=== PATIENT | male | born 1955 | race African-American/Black ===

== ENCOUNTER 2017-01-31 11:57 | Inpatient (IN) | payer OTHER ==
[~2017-01-31] VITALS: Ht 162.6 cm; Wt 59.0 kg
[~2017-01-31 11:57] MED LIST: AMLO10TA4 PO; AMOX-421 PO; ATOR10TA PO; CIPR2.5D17 BOTHEYE; INSASP SUBCUT; LEVVL SUBCUT; PHEN100C4 PO; PRED1DRO LEFTEYE; PRED5DRO7 OP; TRAM50TA73 PO
[2017-01-31] MEDS ORDERED: SODIUM CHLORIDE 0.9% 1,000 ML IV ONE (12:39)
[2017-01-31] MEDS ORDERED: INSULIN REGULAR (HUMULIN R) UD 100 UNITS/ML SYR IV ONE (12:45)
[2017-01-31 12:51] LABS: CLARITY URINE CLEAR (CLEAR); COLOR URINE YELLOW (YELLOW); GLUCOSE URINE 3+ (NEGATIVE); KETONES URINE NEGATIVE (NEGATIVE); LEUKOCYTE ESTERASE URINE NEGATIVE (NEGATIVE); NITRITE URINE NEGATIVE (NEGATIVE); OCCULT BLOOD URINE NEGATIVE (NEGATIVE); PROTEIN URINE NEGATIVE (NEGATIVE); SPECIFIC GRAVITY URINE 1.029 (1.005-1.030); UROBILINOGEN URINE 0.2 E.U./dL (0.2-1.0)
[2017-01-31 12:55] LABS: BASOPHILS % 1.4 % (0.0-2.0); EOSINOPHILS % 2.3 % (0.0-5.0); HEMATOCRIT. 40.5 % (42.0-52.0); LYMPHOCYTES % 23.5 % (20.0-50.0); MEAN CORPUSCULAR HEMOGLOBIN 29.9 pg (28.0-32.0); MEAN CORPUSCULAR VOLUME 93.4 fL (80.0-94.0); NEUTROPHILS % 66.8 % (40.0-76.0); PLATELET 279 x1000/uL (130-400); RED BLOOD CELL COUNT 4.34 mill/uL (4.7-6.1); RED CELL DISTRIBUTION WIDTH 15.1 % (11.6-14.6)
[2017-01-31] MEDS ORDERED: INSULIN REGULAR (HUMULIN R) 300UNITS/3ML IV ONE (13:00)
[2017-01-31 13:02] LABS: CHLORIDE 98 mEq/L (98-107)
[2017-01-31 13:07] LABS: BG BASE EXCESS -6.2 mmol/L (-2.0-2.0); BG CARBOXYHEMOGLOBIN 2.7 % (0.5-1.5); BG DEOXYHEMOGLOBIN 4.6 % (0.0-5.0); BG HCO3 ACT 18.8 mmol/L (22.0-26.0); BG OXYGEN SATURATION 95.3 % (92.0-98.5); BG OXYHEMOGLOBIN 92.7 % (94.0-97.0); BG PCO2 35.6 mmHg (35.0-45.0); BG PO2 80.8 mmHg (75.0-100.0); BG SAMPLE SITE RIGHT BRACHIAL; BG TOTAL HEMOGLOBIN 13.5 g/dL (12.0-18.0); BG VENT MODE ROOM AIR
[2017-01-31 13:10] LABS: AMYLASE 15 IU/L (25-115); BETA HYDROXYBUTYRATE 0.1 mMol/L (0.0-0.3); CARBON DIOXIDE 21 mEq/L (21-32)
[2017-01-31] MEDS ORDERED: SODIUM CHLORIDE 0.9% 1,000 ML IV NR (17:15)
[2017-01-31] MEDS ORDERED: INSULIN REGULAR (HUMULIN R) 300UNITS/3ML IV NR (17:15)
[2017-01-31] MEDS: BLOOD SUGAR DIAGNOSTIC STRIP TEST SCH (23:23)
[2017-01-31] MEDS ORDERED: DEXTROSE 50% WATER 50ML SYRINGE IV PRN (23:30)
[2017-01-31] MEDS: INSULIN LISPRO 100 UNITS/ML SUBCUT SCH (23:57)
[2017-02-01] VITALS (7 sets, daily range): BP systolic 114–159; BP diastolic 84–111
[2017-02-01] MEDS ORDERED: DEXTROSE 50% WATER 50ML SYRINGE IV PRN ×2 (01:00→14:00)
[2017-02-01] MEDS: AMLODIPINE 10MG TABLET PO SCH ×2 (01:10→09:40)
[2017-02-01 02:09] LABS: *AMPHETAMINES SCREEN URINE NEGATIVE (NEGATIVE); *BARBITURATES SCREEN URINE NEGATIVE (NEGATIVE); *BENZODIAZEPINES SCREEN URINE NEGATIVE (NEGATIVE); *COCAINE SCREEN URINE PRESUMTIVE POSITIVE (NEGATIVE); CANNABINOID URINE SCREEN NEGATIVE (NEGATIVE); METHADONE URINE SCREEN NEGATIVE (NEGATIVE); OPIATES URINE SCREEN NEGATIVE (NEGATIVE); PHENCYCLIDINE URINE SCREEN NEGATIVE (NEGATIVE)
[2017-02-01 05:18] LABS: BASOPHILS % 1.1 % (0.0-2.0); EOSINOPHILS % 3.4 % (0.0-5.0); HEMATOCRIT. 40.3 % (42.0-52.0); HEMOGLOBIN. 13.7 g/dL (14.0-18.0); LYMPHOCYTES % 31.3 % (20.0-50.0); MEAN CORPUSCULAR VOLUME 88.7 fL (80.0-94.0); MEAN PLATELET VOLUME 9.7 fl (7.4-10.4); MONOCYTES % 3.9 % (2.0-8.0); NEUTROPHILS % 60.3 % (40.0-76.0); PLATELET 316 x1000/uL (130-400); RED BLOOD CELL COUNT 4.55 mill/uL (4.7-6.1)
[2017-02-01] MEDS: BLOOD SUGAR DIAGNOSTIC STRIP TEST SCH ×4 (06:10→20:43)
[2017-02-01 06:13] LABS: CARBON DIOXIDE 25 mEq/L (21-32); CHLORIDE 109 mEq/L (98-107); HDL CHOLESTEROL 56 mg/dL (40-59); LDL CHOLESTEROL 63 mg/dL (5-100)
[2017-02-01] MEDS: PREDNISOLONE ACETATE 1% OPHTH DROPS 1ML LEFTEYE SCH ×3 (06:23→17:55)
[2017-02-01] MEDS: INSULIN LISPRO 100 UNITS/ML SUBCUT SCH ×7 (06:24→20:43)
[2017-02-01] MEDS ORDERED: POTASSIUM CHLORIDE 20MEQ TABLET SR PO NR (06:45)
[2017-02-01] MEDS: ENOXAPARIN 40MG/0.4ML SYR SUBCUT SCH (09:40)
[2017-02-01] MEDS: PHENYTOIN SODIUM EXTENDED 100MG CAPSULE PO SCH (20:44)
[2017-02-01] MEDS: ATORVASTATIN CALCIUM 10MG TABLET PO SCH (20:44)
[2017-02-01] MEDS: INSULIN DETEMIR UD 100 UNITS/ML SYR SUBCUT SCH (21:06)
[2017-02-01] MEDS ORDERED: INSULIN DETEMIR UD 100 UNITS/ML SYR SUBCUT SCH (22:00)
[2017-02-02] VITALS: BP 105/73
[2017-02-02] MEDS: PREDNISOLONE ACETATE 1% OPHTH DROPS 1ML LEFTEYE SCH ×4 (00:29→17:47)
[2017-02-02 04:00] VITALS: BP 125/85
[2017-02-02 05:51] LABS: BASOPHILS % 1.2 % (0.0-2.0); EOSINOPHILS % 2.8 % (0.0-5.0); HEMATOCRIT. 37.4 % (42.0-52.0); HEMOGLOBIN. 12.8 g/dL (14.0-18.0); LYMPHOCYTES % 37.1 % (20.0-50.0); MEAN CORPUSCULAR HEMOGLOBIN 30.4 pg (28.0-32.0); MEAN CORPUSCULAR VOLUME 88.6 fL (80.0-94.0); MEAN PLATELET VOLUME 9.7 fl (7.4-10.4); MONOCYTES % 3.7 % (2.0-8.0); NEUTROPHILS % 55.2 % (40.0-76.0); PLATELET 288 x1000/uL (130-400); RED BLOOD CELL COUNT 4.22 mill/uL (4.7-6.1); RED CELL DISTRIBUTION WIDTH 15.1 % (11.6-14.6)
[2017-02-02] MEDS: BLOOD SUGAR DIAGNOSTIC STRIP TEST SCH ×4 (06:09→22:10)
[2017-02-02 06:13] LABS: CHLORIDE 104 mEq/L (98-107)
[2017-02-02] MEDS: INSULIN LISPRO 100 UNITS/ML SUBCUT SCH ×7 (06:16→22:10)
[2017-02-02 06:21] LABS: CARBON DIOXIDE 21 mEq/L (21-32)
[2017-02-02 08:00] VITALS: BP 132/91
[2017-02-02] MEDS: ENOXAPARIN 40MG/0.4ML SYR SUBCUT SCH (08:09)
[2017-02-02] MEDS: AMLODIPINE 10MG TABLET PO SCH (08:09)
[2017-02-02] MEDS: INSULIN DETEMIR UD 100 UNITS/ML SYR SUBCUT SCH ×2 (10:41→22:13)
[2017-02-02 12:00] VITALS: BP 125/89
[2017-02-02 16:00] VITALS: BP 122/87
[2017-02-02 20:00] VITALS: BP 122/89
[2017-02-02] MEDS: PHENYTOIN SODIUM EXTENDED 100MG CAPSULE PO SCH (22:07)
[2017-02-02] MEDS: ATORVASTATIN CALCIUM 10MG TABLET PO SCH (22:07)
[2017-02-03] VITALS: BP 125/88
[2017-02-03] MEDS: PREDNISOLONE ACETATE 1% OPHTH DROPS 1ML LEFTEYE SCH ×3 (00:02→12:51)
[2017-02-03 04:00] VITALS: BP 131/83
[2017-02-03] MEDS: BLOOD SUGAR DIAGNOSTIC STRIP TEST SCH ×2 (06:27→11:45)
[2017-02-03] MEDS: INSULIN LISPRO 100 UNITS/ML SUBCUT SCH ×4 (06:28→12:51)
[2017-02-03 08:00] VITALS: BP 129/86
[2017-02-03] MEDS: ENOXAPARIN 40MG/0.4ML SYR SUBCUT SCH (08:30)
[2017-02-03] MEDS: AMLODIPINE 10MG TABLET PO SCH (08:31)
[2017-02-03] MEDS: INSULIN DETEMIR UD 100 UNITS/ML SYR SUBCUT SCH (10:00)
[2017-02-03 12:00] VITALS: BP 125/78
[2017-02-03 13:52] VITALS: BP 129/86
== END 2017-02-03 15:30 | disposition home or self-care (01) | DRG 420 ==
LOC: ER 12:16 → 5WST 16:21 → ENRESERV 21:09
PROVIDERS: ADMIT Internal Medicine; ATTEND Internal Medicine
DX: E11.65 Type 2 diabetes mellitus with hyperglycemia (principal); E44.1 Mild protein-calorie malnutrition; I10 Essential (primary) hypertension; F17.210 Nicotine dependence, cigarettes, uncomplicated; F10.20 Alcohol dependence, uncomplicated; F14.10 Cocaine abuse, uncomplicated; J44.9 Chronic obstructive pulmonary disease, unspecified; Z79.899 Other long term (current) drug therapy; Z79.4 Long term (current) use of insulin; Z59.0 Homelessness; Z82.49 Family history of ischemic heart disease and other diseases of the circulatory system; Z83.3 Family history of diabetes mellitus; Z91.19 Patient's noncompliance with other medical treatment and regimen; Z68.22 Body mass index [BMI] 22.0-22.9, adult
CPT/HCPCS: 36415; 36600; 71010; 80048; 80053; 80061; 80305; 81001; 82010; 82150; 82375; 82805; 82962; 83036; 83690; 85025; 93005; 96361; 96374; 99285; A6261; J1650; J1815; J7030

== ENCOUNTER 2017-05-05 15:56 | Inpatient (IN) | payer OTHER ==
[~2017-05-05] VITALS: Ht 162.6 cm; Wt 56.7 kg
[2017-05-05] MEDS ORDERED: SODIUM CHLORIDE 0.9% 1,000 ML IV ONE ×2 (16:12→17:38)
[2017-05-05 16:41] LABS: BASOPHILS % 1.1 % (0.0-2.0); EOSINOPHILS % 2.3 % (0.0-5.0); HEMATOCRIT. 36.1 % (42.0-52.0); HEMOGLOBIN. 12.2 g/dL (14.0-18.0); LYMPHOCYTES % 21.1 % (20.0-50.0); MEAN CORPUSCULAR VOLUME 88.9 fL (80.0-94.0); MEAN PLATELET VOLUME 9.9 fl (7.4-10.4); MONOCYTES % 3.8 % (2.0-8.0); NEUTROPHILS % 71.7 % (40.0-76.0); PLATELET 351 x1000/uL (130-400); RED BLOOD CELL COUNT 4.06 mill/uL (4.7-6.1); RED CELL DISTRIBUTION WIDTH 13.6 % (11.6-14.6)
[2017-05-05 16:48] LABS: CHLORIDE 103 mEq/L (98-107)
[2017-05-05 16:49] LABS: INR 1.1; PROTHROMBIN TIME 10.9 sec (9.4-11.6)
[2017-05-05 16:53] LABS: CARBON DIOXIDE 19 mEq/L (21-32)
[2017-05-05 16:56] LABS: BETA HYDROXYBUTYRATE 0.1 mMol/L (0.0-0.3)
[2017-05-05] MEDS ORDERED: INSULIN REGULAR (HUMULIN R) 300UNITS/3ML IV ONE (17:45)
[2017-05-05] MEDS ORDERED: SODIUM CHLORIDE 0.9% 1,000 ML IV SCH ×2 (18:14→23:00)
[2017-05-05] MEDS ORDERED: ACETAMINOPHEN 325MG TABLET PO PRN (18:15)
[2017-05-05] MEDS ORDERED: IBUPROFEN 600MG TABLET PO PRN (18:15)
[2017-05-05 23:00] VITALS: BP 145/87
[2017-05-05] MEDS ORDERED: DEXTROSE 50% WATER 50ML SYRINGE IV PRN (23:00)
[2017-05-05] MEDS: AMLODIPINE 10MG TABLET PO SCH (23:15)
[2017-05-05] MEDS ORDERED: TRAMADOL 50MG TABLET PO PRN (23:15)
[2017-05-06] MEDS ORDERED: INSULIN DETEMIR UD 100 UNITS/ML SYR SUBCUT NR
[2017-05-06 00:33] LABS: BASOPHILS % 0.9 % (0.0-2.0); EOSINOPHILS % 2.9 % (0.0-5.0); HEMATOCRIT. 36.7 % (42.0-52.0); HEMOGLOBIN. 12.3 g/dL (14.0-18.0); LYMPHOCYTES % 25.2 % (20.0-50.0); MEAN CORPUSCULAR HEMOGLOBIN 29.5 pg (28.0-32.0); MEAN CORPUSCULAR VOLUME 88.3 fL (80.0-94.0); MEAN PLATELET VOLUME 9.4 fl (7.4-10.4); MONOCYTES % 3.2 % (2.0-8.0); NEUTROPHILS % 67.8 % (40.0-76.0); PLATELET 341 x1000/uL (130-400); RED BLOOD CELL COUNT 4.15 mill/uL (4.7-6.1); RED CELL DISTRIBUTION WIDTH 13.7 % (11.6-14.6)
[2017-05-06 01:28] LABS: CARBON DIOXIDE 23 mEq/L (21-32); CHLORIDE 108 mEq/L (98-107); LDL CHOLESTEROL 42 mg/dL (5-100)
[2017-05-06 01:31] LABS: HDL CHOLESTEROL 66 mg/dL (40-59)
[2017-05-06 04:00] VITALS: BP 157/111
[2017-05-06] MEDS: INSULIN LISPRO 100 UNITS/ML SUBCUT SCH ×6 (07:23→21:00)
[2017-05-06] MEDS: BLOOD SUGAR DIAGNOSTIC STRIP TEST SCH ×4 (07:28→22:05)
[2017-05-06] MEDS ORDERED: INSULIN LISPRO 100 UNITS/ML SUBCUT SCH (07:50)
[2017-05-06 08:00] VITALS: BP 168/119
[2017-05-06] MEDS: AMLODIPINE 10MG TABLET PO SCH (09:17)
[2017-05-06] MEDS ORDERED: FOLIC ACID 1 MG, THIAMINE HCL 100 MG, MVI, ADULT NO.1 10 ML in DEXTROSE 5% WATER 1,000 ML IV ONE ×4 (11:00)
[2017-05-06 12:00] VITALS: BP 143/105
[2017-05-06] MEDS: LISINOPRIL 20MG TABLET PO SCH ×2 (12:55→22:00)
[2017-05-06] MEDS: INSULIN DETEMIR UD 100 UNITS/ML SYR SUBCUT SCH ×2 (12:55→22:19)
[2017-05-06 16:00] VITALS: BP 115/83
[2017-05-06] MEDS: ENOXAPARIN 40MG/0.4ML SYR SUBCUT SCH (18:18)
[2017-05-06 20:00] VITALS: BP 117/85
[2017-05-06] MEDS: ATORVASTATIN CALCIUM 10MG TABLET PO SCH (21:53)
[2017-05-06] MEDS ORDERED: INSULIN DETEMIR UD 100 UNITS/ML SYR SUBCUT SCH (22:00)
[2017-05-06] MEDS: PHENYTOIN SODIUM 300 MG in SODIUM CHLORIDE 0.9% 50 ML IV SCH (22:01)
[2017-05-07] VITALS: BP 133/95
[2017-05-07 04:00] VITALS: BP 115/78
[2017-05-07] MEDS: BLOOD SUGAR DIAGNOSTIC STRIP TEST SCH ×4 (06:50→21:00)
[2017-05-07] MEDS: INSULIN LISPRO 100 UNITS/ML SUBCUT SCH ×7 (06:50→23:04)
[2017-05-07 08:00] VITALS: BP 122/75
[2017-05-07] MEDS: AMLODIPINE 10MG TABLET PO SCH (09:13)
[2017-05-07] MEDS: LISINOPRIL 20MG TABLET PO SCH ×2 (09:14→22:43)
[2017-05-07] MEDS: INSULIN DETEMIR UD 100 UNITS/ML SYR SUBCUT SCH ×2 (10:17→23:05)
[2017-05-07 12:00] VITALS: BP 139/92
[2017-05-07 16:00] VITALS: BP 104/73
[2017-05-07] MEDS: ENOXAPARIN 40MG/0.4ML SYR SUBCUT SCH (18:00)
[2017-05-07 20:00] VITALS: BP 119/73
[2017-05-07] MEDS: ATORVASTATIN CALCIUM 10MG TABLET PO SCH (22:42)
[2017-05-07] MEDS: PHENYTOIN SODIUM 300 MG in SODIUM CHLORIDE 0.9% 50 ML IV SCH (22:47)
[2017-05-08] VITALS: BP 102/61
[2017-05-08 04:00] VITALS: BP 112/63
[2017-05-08] MEDS: INSULIN LISPRO 100 UNITS/ML SUBCUT SCH ×7 (07:10→22:41)
[2017-05-08] MEDS: BLOOD SUGAR DIAGNOSTIC STRIP TEST SCH ×4 (07:10→22:22)
[2017-05-08 08:00] VITALS: BP 115/77
[2017-05-08] MEDS: AMLODIPINE 10MG TABLET PO SCH (09:27)
[2017-05-08] MEDS: LISINOPRIL 20MG TABLET PO SCH ×2 (09:27→21:00)
[2017-05-08] MEDS: INSULIN DETEMIR UD 100 UNITS/ML SYR SUBCUT SCH ×2 (09:36→22:36)
[2017-05-08 12:00] VITALS: BP 131/84
[2017-05-08 16:00] VITALS: BP 106/70
[2017-05-08] MEDS: ENOXAPARIN 40MG/0.4ML SYR SUBCUT SCH (18:08)
[2017-05-08 19:42] VITALS: BP 108/73
[2017-05-08] MEDS ORDERED: PHENYTOIN SODIUM EXTENDED 100MG CAPSULE PO SCH (21:00)
[2017-05-08] MEDS: ATORVASTATIN CALCIUM 10MG TABLET PO SCH (22:25)
[2017-05-09 00:27] VITALS: BP 107/69
[2017-05-09 04:56] VITALS: BP 120/78
[2017-05-09] MEDS: BLOOD SUGAR DIAGNOSTIC STRIP TEST SCH ×2 (07:09→12:32)
[2017-05-09 08:00] VITALS: BP 120/60
[2017-05-09] MEDS: INSULIN LISPRO 100 UNITS/ML SUBCUT SCH ×4 (09:07→12:32)
[2017-05-09] MEDS: AMLODIPINE 10MG TABLET PO SCH (09:11)
[2017-05-09] MEDS: LISINOPRIL 20MG TABLET PO SCH (09:11)
[2017-05-09] MEDS: INSULIN DETEMIR UD 100 UNITS/ML SYR SUBCUT SCH (10:00)
[2017-05-09 12:00] VITALS: BP 129/77
[2017-05-09 16:00] VITALS: BP 126/83
[2017-05-09] MEDS ORDERED: LEVVL SQ (16:24)
[2017-05-09] MEDS ORDERED: INSU100I7 SQ (16:24)
[2017-05-09] MEDS ORDERED: AMLO10TA4 PO (16:24)
[2017-05-09] MEDS ORDERED: ATOR10TA PO (16:24)
[2017-05-09] MEDS ORDERED: PHEN100C4 PO (16:24)
[2017-07-04] MEDS ORDERED: LEVO500T2 PO (14:25)
== END 2017-05-09 18:20 | disposition home or self-care (01) | DRG 420 ==
LOC: ER 16:10 → 6EST 18:15 → ENRESERV 21:38 → 6EST 05-08 11:34
PROVIDERS: ADMIT Internal Medicine; ATTEND Internal Medicine
DX: E11.65 Type 2 diabetes mellitus with hyperglycemia (principal); E44.0 Moderate protein-calorie malnutrition; I10 Essential (primary) hypertension; M85.80 Other specified disorders of bone density and structure, unspecified site; F17.210 Nicotine dependence, cigarettes, uncomplicated; F10.10 Alcohol abuse, uncomplicated; E83.51 Hypocalcemia; Z79.4 Long term (current) use of insulin; Z82.49 Family history of ischemic heart disease and other diseases of the circulatory system; Z83.3 Family history of diabetes mellitus; Z79.899 Other long term (current) drug therapy; Z68.21 Body mass index [BMI] 21.0-21.9, adult
CPT/HCPCS: 36415; 73130; 80048; 80053; 80061; 82010; 82962; 83036; 85025; 85610; 93005; 96360; 96361; 96372; 99285; C1893; J1165; J1650; J1815; J3411; J3490; J7030; J7070

== ENCOUNTER 2017-07-05 23:17 | Emergency (ER) | payer OTHER ==
[~2017-07-05] VITALS: Ht 180.3 cm; Wt 75.0 kg
[~2017-07-05 23:17] MED LIST changes: -AMOX-421 PO; -CIPR2.5D17 BOTHEYE; +INSU100I7 SQ; +LEVO500T2 PO; +LEVVL SQ
[2017-07-05] MEDS ORDERED: SODIUM CHLORIDE 0.9% 1,000 ML IV ONE (23:32)
[2017-07-05] MEDS ORDERED: INSULIN REGULAR (HUMULIN R) 300UNITS/3ML IV ONE (23:45)
[2017-07-06 00:21] LABS: BASOPHILS % 0.5 % (0.0-2.0); EOSINOPHILS % 0.6 % (0.0-5.0); HEMATOCRIT. 30.2 % (42.0-52.0); HEMOGLOBIN. 10.1 g/dL (14.0-18.0); LYMPHOCYTES % 23.7 % (20.0-50.0); MEAN CORPUSCULAR HEMOGLOBIN 30.2 pg (28.0-32.0); MEAN CORPUSCULAR VOLUME 90.1 fL (80.0-94.0); MEAN PLATELET VOLUME 8.3 fl (7.4-10.4); MONOCYTES % 0.7 % (2.0-8.0); NEUTROPHILS % 74.5 % (40.0-76.0); PLATELET 417 x1000/uL (130-400); RED BLOOD CELL COUNT 3.35 mill/uL (4.7-6.1); RED CELL DISTRIBUTION WIDTH 13.9 % (11.6-14.6)
[2017-07-06 00:38] LABS: BETA HYDROXYBUTYRATE 0.1 mMol/L (0.0-0.3); CARBON DIOXIDE 30 mEq/L (21-32); CHLORIDE 100 mEq/L (98-107); TROPONIN I < 0.02 ng/mL (0.00-0.04)
[2017-07-06 00:58] LABS: BG BASE EXCESS 3.9 mmol/L (-2.0-2.0); BG CARBOXYHEMOGLOBIN 0.6 % (0.5-1.5); BG DEOXYHEMOGLOBIN 2.9 % (0.0-5.0); BG FRACTION INSPIRED OXYGEN 21; BG HCO3 ACT 28.2 mmol/L (22.0-26.0); BG METHEMOGLOBIN 0.2 % (0.0-1.5); BG OXYGEN SATURATION 97.1 % (92.0-98.5); BG OXYHEMOGLOBIN 96.3 % (94.0-97.0); BG PCO2 41.3 mmHg (35.0-45.0); BG PH 7.452 (7.350-7.450); BG PO2 94.3 mmHg (75.0-100.0); BG SAMPLE SITE RIGHT RADIAL; BG TOTAL HEMOGLOBIN 9.3 g/dL (12.0-18.0); BG VENT MODE ROOM AIR
[2017-07-06] MEDS ORDERED: SODIUM CHLORIDE 0.9% 1,000 ML IV SCH (01:04)
[2017-07-06] MEDS ORDERED: SODIUM CHLORIDE 0.9% 1,000 ML IV ONE (01:39)
[2017-07-06] MEDS ORDERED: INSULIN REGULAR HUMAN 100 UNITS/ML 10ML VIAL IV ONE (01:45)
[2017-07-06] MEDS ORDERED: INSULIN REGULAR (HUMULIN R) 300UNITS/3ML IV SCH (02:00)
[2017-07-06 05:30] VITALS: BP 139/88
== END 2017-07-06 05:41 | disposition home or self-care (01) ==
LOC: ER 23:17
DX: E11.65 Type 2 diabetes mellitus with hyperglycemia (principal); R74.0 Nonspecific elevation of levels of transaminase and lactic acid dehydrogenase [LDH]; R03.0 Elevated blood-pressure reading, without diagnosis of hypertension; Z91.11 Patient's noncompliance with dietary regimen; Z79.4 Long term (current) use of insulin; Z79.899 Other long term (current) drug therapy
CPT/HCPCS: 36415; 36600; 71010; 80053; 82010; 82375; 82805; 82962; 83690; 84484; 85025; 93005; 96361; 96374; 96376; 99285; J1815; J7030; Z7610

== ENCOUNTER 2017-07-18 17:07 | Emergency (ER) | payer OTHER ==
[~2017-07-18] VITALS: Ht 170.2 cm; Wt 60.0 kg
[2017-07-19 04:47] VITALS: BP 117/8
[2017-07-19] MEDS ORDERED: SODIUM CHLORIDE 0.9% 500 ML IV ONE (07:00)
[2017-07-19 07:29] LABS: CLARITY URINE CLEAR (CLEAR); COLOR URINE YELLOW (YELLOW); GLUCOSE URINE 3+ (NEGATIVE); KETONES URINE NEGATIVE (NEGATIVE); LEUKOCYTE ESTERASE URINE NEGATIVE (NEGATIVE); NITRITE URINE NEGATIVE (NEGATIVE); OCCULT BLOOD URINE NEGATIVE (NEGATIVE); PROTEIN URINE NEGATIVE (NEGATIVE); SPECIFIC GRAVITY URINE 1.036 (1.005-1.030); UROBILINOGEN URINE 0.2 E.U./dL (0.2-1.0)
[2017-07-19 07:40] LABS: BASOPHILS % 0.7 % (0.0-2.0); EOSINOPHILS % 0.5 % (0.0-5.0); HEMATOCRIT. 31.1 % (42.0-52.0); HEMOGLOBIN. 10.2 g/dL (14.0-18.0); LYMPHOCYTES % 23.5 % (20.0-50.0); MEAN CORPUSCULAR HEMOGLOBIN 28.9 pg (28.0-32.0); MEAN CORPUSCULAR VOLUME 88.2 fL (80.0-94.0); MEAN PLATELET VOLUME 7.7 fl (7.4-10.4); MONOCYTES % 4.6 % (2.0-8.0); NEUTROPHILS % 70.7 % (40.0-76.0); PLATELET 453 x1000/uL (130-400); RED BLOOD CELL COUNT 3.53 mill/uL (4.7-6.1); RED CELL DISTRIBUTION WIDTH 14.3 % (11.6-14.6)
[2017-07-19 07:46] LABS: CHLORIDE 104 mEq/L (98-107)
[2017-07-19 07:54] LABS: CARBON DIOXIDE 29 mEq/L (21-32)
[2017-07-19 08:09] LABS: *AMPHETAMINES SCREEN URINE NEGATIVE (NEGATIVE); *BARBITURATES SCREEN URINE NEGATIVE (NEGATIVE); *BENZODIAZEPINES SCREEN URINE NEGATIVE (NEGATIVE); *COCAINE SCREEN URINE PRESUMTIVE POSITIVE (NEGATIVE); CANNABINOID URINE SCREEN NEGATIVE (NEGATIVE); METHADONE URINE SCREEN NEGATIVE (NEGATIVE); OPIATES URINE SCREEN NEGATIVE (NEGATIVE); PHENCYCLIDINE URINE SCREEN NEGATIVE (NEGATIVE)
[2017-07-19] MEDS ORDERED: POTASSIUM CHLORIDE 20MEQ TABLET SR PO ONE (10:15)
== END 2017-07-19 11:11 | disposition home or self-care (01) ==
LOC: ER 17:38
DX: E11.65 Type 2 diabetes mellitus with hyperglycemia (principal); E87.6 Hypokalemia; I10 Essential (primary) hypertension; Z79.4 Long term (current) use of insulin
CPT/HCPCS: 36415; 80053; 80305; 81001; 82962; 85025; 96360; 96361; 99285; J7040; Z7610

== ENCOUNTER 2017-12-11 21:16 | Inpatient (IN) | payer OTHER ==
[~2017-12-11] VITALS: Ht 170.2 cm; Wt 42.8 kg
[~2017-12-11 21:16] MED LIST changes: -TRAM50TA73 PO; +TRAM50TA94 PO
[2017-12-12 04:51] LABS: HEMATOCRIT. 35.7 % (42.0-52.0); HEMOGLOBIN. 12.1 g/dL (14.0-18.0); MEAN CORPUSCULAR HEMOGLOBIN 28.9 pg (28.0-32.0); MEAN CORPUSCULAR VOLUME 85.2 fL (80.0-94.0); MEAN PLATELET VOLUME 9.5 fl (7.4-10.4); PLATELET 178 x1000/uL (130-400); RED CELL DISTRIBUTION WIDTH 15.4 % (11.6-14.6)
[2017-12-12 05:04] LABS: CHLORIDE 110 mEq/L (98-107)
[2017-12-12] MEDS ORDERED: POTASSIUM CHLORIDE 20MEQ TABLET SR PO NR ×2 (05:30→14:45)
[2017-12-12 05:52] LABS: INR 1.4
[2017-12-12 06:51] LABS: PLATELET ESTIMATE NORMAL
[2017-12-12] MEDS ORDERED: SODIUM CHLORIDE 0.9% 1000ML BAG (SEPSIS BOLUS) IV SCH (07:15)
[2017-12-12 07:21] LABS: CLARITY URINE CLEAR (CLEAR); COLOR URINE YELLOW (YELLOW); KETONES URINE NEGATIVE (NEGATIVE); LEUKOCYTE ESTERASE URINE NEGATIVE (NEGATIVE); NITRITE URINE NEGATIVE (NEGATIVE); OCCULT BLOOD URINE NEGATIVE (NEGATIVE); PH URINE 5.5 (4.5-8.0); PROTEIN URINE NEGATIVE (NEGATIVE); SPECIFIC GRAVITY URINE 1.018 (1.005-1.030)
[2017-12-12] MEDS ORDERED: VANCOMYCIN 1 G PREMIX 200 ML IV SCH (08:30)
[2017-12-12] MEDS ORDERED: PIPERACILLIN/TAZ 3.375G PREMIX 50 ML IV ONE (08:30)
[2017-12-12] MEDS ORDERED: IOHEXOL-300 100 ML BOTTLE ONE (09:21)
[2017-12-12] MEDS ORDERED: LORAZEPAM 2MG/ML CPJ IV PRN (13:45)
[2017-12-12] MEDS ORDERED: DIPHENHYDRAMINE 50MG/ML VIAL IV PRN (13:45)
[2017-12-12] MEDS ORDERED: ONDANSETRON HCL 4MG/2ML VIAL IV PRN (13:45)
[2017-12-12] MEDS ORDERED: ACETAMINOPHEN 325MG TABLET PO PRN (13:45)
[2017-12-12] MEDS ORDERED: HYDROCODONE/ACETAMINOPHEN 5/325MG TABLET PO PRN (13:45)
[2017-12-12] MEDS ORDERED: IPRATROPIUM/ALBUTEROL 0.5-3(2.5)MG/3ML NEB INH PRN (13:45)
[2017-12-12] MEDS ORDERED: DEXTROSE 50% WATER 50ML SYRINGE IV PRN (13:45)
[2017-12-12 14:19] LABS: BG BASE EXCESS -5.2 mmol/L (-2.0-2.0); BG CARBOXYHEMOGLOBIN 1.4 % (0.5-1.5); BG DEOXYHEMOGLOBIN 9.7 % (0.0-5.0); BG FRACTION INSPIRED OXYGEN 21; BG HCO3 ACT 17.8 mmol/L (22.0-26.0); BG METHEMOGLOBIN 0.8 % (0.0-1.5); BG OXYGEN SATURATION 90.1 % (92.0-98.5); BG OXYHEMOGLOBIN 88.1 % (94.0-97.0); BG PCO2 27.3 mmHg (35.0-45.0); BG PH 7.432 (7.350-7.450); BG PO2 58.6 mmHg (75.0-100.0); BG SAMPLE SITE RIGHT BRACHIAL; BG TOTAL HEMOGLOBIN 11.4 g/dL (12.0-18.0); BG VENT MODE ROOM AIR
[2017-12-12 16:00] VITALS: BP 158/96
[2017-12-12] MEDS: CLONIDINE 0.1MG TABLET PO PRN (17:05)
[2017-12-12] MEDS: BLOOD SUGAR DIAGNOSTIC STRIP TEST SCH ×2 (17:07→21:41)
[2017-12-12 17:13] VITALS: BP 158/96
[2017-12-12] MEDS: PIPERACILLIN/TAZ 3.375G PREMIX 50 ML IV SCH (18:02)
[2017-12-12] MEDS: INSULIN LISPRO 100 UNITS/ML SUBCUT SCH ×2 (18:09→21:00)
[2017-12-12 20:00] VITALS: BP 144/90
[2017-12-12 20:57] LABS: CARCINO EMBRYONIC ANTIGEN 2.2 ng/ml; PROSTRATE SPECIFIC AG TOTAL 0.22 ng/mL (0.0-4.0)
[2017-12-12] MEDS: GUAIFENESIN 600MG ER TABLET PO SCH (21:43)
[2017-12-12] MEDS: PHENYTOIN SODIUM EXTENDED 100MG CAPSULE PO SCH (21:44)
[2017-12-12 22:41] LABS: *BARBITURATES SCREEN URINE NEGATIVE (NEGATIVE); CANNABINOID URINE SCREEN NEGATIVE (NEGATIVE); METHADONE URINE SCREEN NEGATIVE (NEGATIVE); OPIATES URINE SCREEN NEGATIVE (NEGATIVE); PHENCYCLIDINE URINE SCREEN NEGATIVE (NEGATIVE)
[2017-12-12 22:42] LABS: *AMPHETAMINES SCREEN URINE NEGATIVE (NEGATIVE); *BENZODIAZEPINES SCREEN URINE NEGATIVE (NEGATIVE); *COCAINE SCREEN URINE PRESUMTIVE POSITIVE (NEGATIVE)
[2017-12-12 23:05] LABS: CLARITY URINE CLEAR (CLEAR); COLOR URINE YELLOW (YELLOW); KETONES URINE NEGATIVE (NEGATIVE); LEUKOCYTE ESTERASE URINE NEGATIVE (NEGATIVE); NITRITE URINE NEGATIVE (NEGATIVE); OCCULT BLOOD URINE NEGATIVE (NEGATIVE); PROTEIN URINE NEGATIVE (NEGATIVE); SPECIFIC GRAVITY URINE 1.032 (1.005-1.030)
[2017-12-13] VITALS: BP 128/90
[2017-12-13] MEDS: PIPERACILLIN/TAZ 3.375G PREMIX 50 ML IV SCH ×4 (00:14→23:03)
[2017-12-13] MEDS: IPRATROPIUM/ALBUTEROL 0.5-3(2.5)MG/3ML NEB INH SCH ×6 (00:24→20:00)
[2017-12-13] MEDS: ACETYLCYSTEINE 100MG/ML 10% VIAL 4ML INH SCH ×3 (00:25→15:40)
[2017-12-13 04:00] VITALS: BP 131/86
[2017-12-13 05:59] LABS: BASOPHILS % 0.4 % (0.0-2.0); EOSINOPHILS % 0.8 % (0.0-5.0); HEMATOCRIT. 29.8 % (42.0-52.0); LYMPHOCYTES % 16.2 % (20.0-50.0); MEAN CORPUSCULAR HEMOGLOBIN 28.2 pg (28.0-32.0); MEAN CORPUSCULAR VOLUME 84.3 fL (80.0-94.0); MEAN PLATELET VOLUME 9.6 fl (7.4-10.4); MONOCYTES % 1.6 % (2.0-8.0); PLATELET 165 x1000/uL (130-400); RED BLOOD CELL COUNT 3.53 mill/uL (4.7-6.1); RED CELL DISTRIBUTION WIDTH 15.3 % (11.6-14.6)
[2017-12-13] MEDS: BLOOD SUGAR DIAGNOSTIC STRIP TEST SCH ×5 (06:52→21:25)
[2017-12-13] MEDS: INSULIN LISPRO 100 UNITS/ML SUBCUT SCH ×4 (07:00→21:00)
[2017-12-13 08:00] VITALS: BP 155/97
[2017-12-13] MEDS: GUAIFENESIN 600MG ER TABLET PO SCH ×2 (09:19→21:18)
[2017-12-13] MEDS: CLONIDINE 0.1MG TABLET PO PRN (09:19)
[2017-12-13 09:55] LABS: CHLORIDE 111 mEq/L (98-107)
[2017-12-13 10:05] LABS: LDL CHOLESTEROL 26 mg/dL (5-100)
[2017-12-13 10:07] LABS: HDL CHOLESTEROL 14 mg/dL (40-59)
[2017-12-13 12:00] VITALS: BP 126/87
[2017-12-13] MEDS: PHENYTOIN SODIUM EXTENDED 100MG CAPSULE PO SCH (21:18)
[2017-12-14] VITALS: BP 142/88
[2017-12-14] MEDS: IPRATROPIUM/ALBUTEROL 0.5-3(2.5)MG/3ML NEB INH SCH ×6 (00:55→21:19)
[2017-12-14] MEDS: ACETYLCYSTEINE 100MG/ML 10% VIAL 4ML INH SCH ×4 (01:06→15:45)
[2017-12-14] MEDS: CLONIDINE 0.1MG TABLET PO PRN (03:43)
[2017-12-14 04:00] VITALS: BP 164/104
[2017-12-14] MEDS: PIPERACILLIN/TAZ 3.375G PREMIX 50 ML IV SCH ×3 (05:54→17:55)
[2017-12-14] MEDS: BLOOD SUGAR DIAGNOSTIC STRIP TEST SCH ×4 (05:59→21:09)
[2017-12-14] MEDS: INSULIN LISPRO 100 UNITS/ML SUBCUT SCH ×4 (06:40→22:43)
[2017-12-14 08:00] VITALS: BP 91/64
[2017-12-14] MEDS: GUAIFENESIN 600MG ER TABLET PO SCH ×2 (09:32→21:04)
[2017-12-14 16:00] VITALS: BP 117/95
[2017-12-14] MEDS: NICOTINE 7MG PATCH TD SCH (17:55)
[2017-12-14 20:00] VITALS: BP 142/102
[2017-12-14] MEDS: PHENYTOIN SODIUM EXTENDED 100MG CAPSULE PO SCH (21:04)
[2017-12-15] VITALS: BP 150/70
[2017-12-15] MEDS: PIPERACILLIN/TAZ 3.375G PREMIX 50 ML IV SCH ×4 (00:48→18:00)
[2017-12-15] MEDS: IPRATROPIUM/ALBUTEROL 0.5-3(2.5)MG/3ML NEB INH SCH ×2 (01:06→04:55)
[2017-12-15] MEDS: BLOOD SUGAR DIAGNOSTIC STRIP TEST SCH ×4 (06:00→21:00)
[2017-12-15] MEDS: INSULIN LISPRO 100 UNITS/ML SUBCUT SCH ×4 (06:19→21:00)
[2017-12-15 06:48] LABS: CHLORIDE 100 mEq/L (98-107)
[2017-12-15 07:00] LABS: BASOPHILS % 0.4 % (0.0-2.0); EOSINOPHILS % 0.6 % (0.0-5.0); LYMPHOCYTES % 23.1 % (20.0-50.0); MEAN CORPUSCULAR HEMOGLOBIN 28.2 pg (28.0-32.0); MEAN CORPUSCULAR VOLUME 84.4 fL (80.0-94.0); MEAN PLATELET VOLUME 8.3 fl (7.4-10.4); MONOCYTES % 2.6 % (2.0-8.0); NEUTROPHILS % 73.3 % (40.0-76.0); PLATELET 199 x1000/uL (130-400); RED BLOOD CELL COUNT 3.56 mill/uL (4.7-6.1); RED CELL DISTRIBUTION WIDTH 15.2 % (11.6-14.6)
[2017-12-15 08:00] VITALS: BP 132/92
[2017-12-15] MEDS: GUAIFENESIN 600MG ER TABLET PO SCH ×2 (09:01→21:00)
[2017-12-15] MEDS: NICOTINE 7MG PATCH TD SCH (09:01)
[2017-12-15 12:00] VITALS: BP 141/95
[2017-12-15 16:00] VITALS: BP 129/92
[2017-12-15 20:00] VITALS: BP_SYST 131; BP_SYST 140; BP_DIAS 75; BP_DIAS 87
[2017-12-15] MEDS: PHENYTOIN SODIUM EXTENDED 100MG CAPSULE PO SCH (22:28)
[2017-12-16 04:00] VITALS: BP 131/87
[2017-12-16] MEDS: PIPERACILLIN/TAZ 3.375G PREMIX 50 ML IV SCH ×5 (06:12→18:00)
[2017-12-16] MEDS: INSULIN LISPRO 100 UNITS/ML SUBCUT SCH ×3 (06:48→17:15)
[2017-12-16] MEDS: BLOOD SUGAR DIAGNOSTIC STRIP TEST SCH ×3 (06:53→16:45)
[2017-12-16 08:00] VITALS: BP 133/88
[2017-12-16] MEDS: GUAIFENESIN 600MG ER TABLET PO SCH (08:51)
[2017-12-16] MEDS: NICOTINE 7MG PATCH TD SCH (08:52)
[2017-12-16] MEDS: IPRATROPIUM/ALBUTEROL 0.5-3(2.5)MG/3ML NEB INH SCH (09:35)
[2017-12-16] MEDS: ACETYLCYSTEINE 100MG/ML 10% VIAL 4ML INH SCH (09:35)
[2017-12-16 10:09] LABS: BASOPHILS % 0.7 % (0.0-2.0); EOSINOPHILS % 0.6 % (0.0-5.0); HEMATOCRIT. 30.6 % (42.0-52.0); HEMOGLOBIN. 10.5 g/dL (14.0-18.0); MEAN CORPUSCULAR HEMOGLOBIN 28.9 pg (28.0-32.0); MEAN CORPUSCULAR VOLUME 84.4 fL (80.0-94.0); MEAN PLATELET VOLUME 8.1 fl (7.4-10.4); MONOCYTES % 3.4 % (2.0-8.0); NEUTROPHILS % 71.3 % (40.0-76.0); PLATELET 224 x1000/uL (130-400); RED BLOOD CELL COUNT 3.62 mill/uL (4.7-6.1)
[2017-12-16 10:19] LABS: CHLORIDE 101 mEq/L (98-107)
[2017-12-16 12:00] VITALS: BP 117/79
[2017-12-16 16:00] VITALS: BP 124/86
[2017-12-16 18:43] VITALS: BP 117/79
[2017-12-16 20:00] VITALS: BP 123/84
== END 2017-12-16 20:00 | disposition home or self-care (01) | DRG 133 ==
LOC: ER 21:34 → 5WST 12-12 12:19 → EDBEDREQ 12-12 12:20 → EDBEDREQTM 12-12 12:20 → ENRESERV 12-12 15:35 → CANBEDREQ 12-12 15:50
PROVIDERS: ADMIT Internal Medicine; ATTEND Internal Medicine
DX: J96.01 Acute respiratory failure with hypoxia (principal); J69.0 Pneumonitis due to inhalation of food and vomit; E43 Unspecified severe protein-calorie malnutrition; R56.9 Unspecified convulsions; F14.10 Cocaine abuse, uncomplicated; E11.65 Type 2 diabetes mellitus with hyperglycemia; B19.20 Unspecified viral hepatitis C without hepatic coma; D64.9 Anemia, unspecified; E87.6 Hypokalemia; F17.210 Nicotine dependence, cigarettes, uncomplicated; H54.62 Unqualified visual loss, left eye, normal vision right eye; F10.20 Alcohol dependence, uncomplicated; I10 Essential (primary) hypertension; Z79.4 Long term (current) use of insulin; Z79.899 Other long term (current) drug therapy; Z82.49 Family history of ischemic heart disease and other diseases of the circulatory system; Z83.3 Family history of diabetes mellitus; Z59.0 Homelessness; Z79.2 Long term (current) use of antibiotics; Z81.1 Family history of alcohol abuse and dependence; Z68.1 Body mass index [BMI] 19.9 or less, adult
CPT/HCPCS: 36415; 36600; 71045; 74177; 80048; 80053; 80061; 80185; 80305; 81003; 82105; 82375; 82378; 82805; 82962; 83036; 83605; 84153; 84484; 85025; 85610; 87040; 87804; 93005; 93970; 94640; 97162; 97166; 97530; 99285; C1893; J1815; J2543; J3370; J7030; J7040; J7050; J7608; J7620; Q9967